=== PATIENT | male | born 1975 | race Caucasian/White ===

== ENCOUNTER 2024-07-28 15:06 | Inpatient (IN) | payer OTHER, SELFPAY ==
--- OUTSIDE RECORDS SUMMARY | 2024-07-28 15:10 | XMS REPORT | Continuity of Care Document ---
Author Name Unknown Address [address] [facility] [address] [place] [address] [facility] thconnect Address [address] [facility] [address] [place] [address] Care Team Providers Care Head Athletic Trainer Name Role Phone SISSON_C Attending Clinician Unavailable [facility]IS[facility]_C Admitting Clinician Unavailable Payers Payer Name Policy Type Policy Number Effective Date Expirati on Date Source Problems Condition Name Condition Details Condition Category Status Onset Date Resolution Date Last Treatment Date Treating Clinician Comments Source Essential hypertensi on Essential Hypertensi on Problem Active 09-16 00:00: 00 [facility] Abnormal blood pressure Abnormal Blood Pressure Problem Active 09-16 00:00: 00 [facility] Vitamin D deficiency Vitamin D Deficiency Problem Active 09-16 00:00: 00 [facility] Social History Smoking Status Start Date Stop Date Source Former Smoker [facility] Medications Ordered Medication Name Filled Medication Name Start Date Stop Date Current Medication? Ordering Clinician Indication Dosage Frequency Signature (SIG) Comments Components Source diclofenac 1 % topical gel APPLY 2 GRAMS TO THE AFFECTED AREA(S) BY TOPICAL ROUTE 4 TIMES PER DAY diclofenac 1 % topical gel APPLY 2 GRAMS TO THE AFFECTED AREA(S) BY TOPICAL ROUTE 4 TIMES PER DAY No diclofenac 1 % topical gel APPLY 2 GRAMS TO THE AFFECTED AREA(S) BY TOPICAL ROUTE 4 TIMES PER DAY [facility] diclofenac sodium 75 mg tablet,deni yed release TAKE 1 TABLET BY MOUTH TWICE DAILY NEEDED diclofenac sodium 75 mg tablet,deni yed release TAKE 1 TABLET BY MOUTH TWICE DAILY NEEDED No diclofenac sodium 75 mg tablet,del ayed release TAKE 1 TABLET BY MOUTH TWICE DAILY NEEDED [facility] losartan 100 mg-hydrochl orothiazide 25 mg tablet TAKE 1 TABLET BY MOUTH EVERY DAY losartan 100 mg-hydrochl orothiazide 25 mg tablet TAKE 1 TABLET BY MOUTH EVERY DAY No losartan 100 mg-hydroch lorothiazi de 25 mg tablet TAKE 1 TABLET BY MOUTH EVERY DAY [facility] meloxicam 15 mg tablet Take 1 tablet every day by oral route for 30 days. meloxicam 15 mg tablet Take 1 tablet every day by oral route for 30 days. No 1 Q1D meloxicam 15 mg tablet Take 1 tablet every day by oral route for 30 days. [facility] Norvasc 5 mg tablet Take 1 tablet every day by oral route at bedtime for 30 days. Norvasc 5 mg tablet Take 1 tablet every day by oral route at bedtime for 30 days. No 1 Q1D Norvasc 5 mg tablet Take 1 tablet every day by oral route at bedtime for 30 days. [facility] phentermine 37.5 mg tablet TAKE 1 TABLET BY MOUTH EVERY DAY phentermine 37.5 mg tablet TAKE 1 TABLET BY MOUTH EVERY DAY No phentermin e 37.5 mg tablet TAKE 1 TABLET BY MOUTH EVERY DAY [facility] prednisone 20 mg tablet Take 1 tablet twice a day by oral route for 5 days. prednisone 20 mg tablet Take 1 tablet twice a day by oral route for 5 days. No 1 BID prednisone 20 mg tablet Take 1 tablet twice a day by oral route for 5 days. [facility] trazodone 100 mg tablet TAKE 1 TABLET BY MOUTH ONCE DAILY trazodone 100 mg tablet TAKE 1 TABLET BY MOUTH ONCE DAILY No trazodone 100 mg tablet TAKE 1 TABLET BY MOUTH ONCE DAILY [facility] zolpidem 10 mg tablet TAKE 1 TABLET BY MOUTH DAILY AT BEDTIME zolpidem 10 mg tablet TAKE 1 TABLET BY MOUTH DAILY AT BEDTIME No zolpidem 10 mg tablet TAKE 1 TABLET BY MOUTH DAILY AT BEDTIME [facility] atenolol 25 mg tablet Take 1 tablet every day by oral route for 90 days. atenolol 25 mg tablet Take 1 tablet every day by oral route for 90 days. No 1 Q1D atenolol 25 mg tablet Take 1 tablet every day by oral route for 90 days. [facility] baclofen 10 mg tablet TAKE 1 TABLET BY MOUTH THREE TIMES DAILY NEEDED baclofen 10 mg tablet TAKE 1 TABLET BY MOUTH THREE TIMES DAILY NEEDED No baclofen 10 mg tablet TAKE 1 TABLET BY MOUTH THREE TIMES DAILY NEEDED [facility] cholecalcif sherry (vitamin D3) 1,250 mcg (50,000 unit) capsule Take 1 capsule every week by oral route as directed for 90 days. cholecalcif sherry (vitamin D3) 1,250 mcg (50,000 unit) capsule Take 1 capsule every week by oral route as directed for 90 days. No 1capsul e(s) Q1W cholecalci ferol (vitamin D3) 1,250 mcg (50,000 unit) capsule Take 1 capsule every week by oral route as directed for 90 days. [facility] diclofenac sodium 75 mg tablet,deni yed release TAKE 1 TABLET BY MOUTH TWICE DAILY NEEDED diclofenac sodium 75 mg tablet,deni yed release TAKE 1 TABLET BY MOUTH TWICE DAILY NEEDED No diclofenac sodium 75 mg tablet,del ayed release TAKE 1 TABLET BY MOUTH TWICE DAILY NEEDED [facility] losartan 100 mg-hydrochl orothiazide 25 mg tablet Take 1 tablet every day by oral route for 90 days. losartan 100 mg-hydrochl orothiazide 25 mg tablet Take 1 tablet every day by oral route for 90 days. No 1 Q1D losartan 100 mg-hydroch lorothiazi de 25 mg tablet Take 1 tablet every day by oral route for 90 days. [facility] Norvasc 5 mg tablet Take 1 tablet every day by oral route at bedtime for 30 days. Norvasc 5 mg tablet Take 1 tablet every day by oral route at bedtime for 30 days. No 1 Q1D Norvasc 5 mg tablet Take 1 tablet every day by oral route at bedtime for 30 days. [facility] trazodone 100 mg tablet TAKE 1 TABLET BY MOUTH ONCE DAILY trazodone 100 mg tablet TAKE 1 TABLET BY MOUTH ONCE DAILY No trazodone 100 mg tablet TAKE 1 TABLET BY MOUTH ONCE DAILY [facility] atenolol 25 mg tablet TAKE 1 TABLET BY MOUTH EVERY DAY atenolol 25 mg tablet TAKE 1 TABLET BY MOUTH EVERY DAY No atenolol 25 mg tablet TAKE 1 TABLET BY MOUTH EVERY DAY [facility] baclofen 10 mg tablet TAKE 1 TABLET BY MOUTH THREE TIMES DAILY NEEDED baclofen 10 mg tablet TAKE 1 TABLET BY MOUTH THREE TIMES DAILY NEEDED No baclofen 10 mg tablet TAKE 1 TABLET BY MOUTH THREE TIMES DAILY NEEDED [facility] cholecalcif sherry (vitamin D3) 1,250 mcg (50,000 unit) capsule Take 1 capsule every week by oral route as directed for 90 days. cholecalcif sherry (vitamin D3) 1,250 mcg (50,000 unit) capsule Take 1 capsule every week by oral route as directed for 90 days. No 1capsul e(s) Q1W cholecalci ferol (vitamin D3) 1,250 mcg (50,000 unit) capsule Take 1 capsule every week by oral route as directed for 90 days. [facility] diclofenac sodium 75 mg tablet,deni yed release TAKE 1 TABLET BY MOUTH TWICE DAILY NEEDED diclofenac sodium 75 mg tablet,deni yed release TAKE 1 TABLET BY MOUTH TWICE DAILY NEEDED No diclofenac sodium 75 mg tablet,del ayed release TAKE 1 TABLET BY MOUTH TWICE DAILY NEEDED [facility] losartan 100 mg-hydrochl orothiazide 25 mg tablet TAKE 1 TABLET BY MOUTH EVERY DAY losartan 100 mg-hydrochl orothiazide 25 mg tablet TAKE 1 TABLET BY MOUTH EVERY DAY No losartan 100 mg-hydroch lorothiazi de 25 mg tablet TAKE 1 TABLET BY MOUTH EVERY DAY [facility] Norvasc 5 mg tablet Take 1 tablet every day by oral route at bedtime for 30 days. Norvasc 5 mg tablet Take 1 tablet every day by oral route at bedtime for 30 days. No 1 Q1D Norvasc 5 mg tablet Take 1 tablet every day by oral route at bedtime for 30 days. [facility] phentermine 37.5 mg tablet Take 1 tablet every day by oral route for 30 days. phentermine 37.5 mg tablet Take 1 tablet every day by oral route for 30 days. No 1 Q1D phentermin e 37.5 mg tablet Take 1 tablet every day by oral route for 30 days. [facility] trazodone 100 mg tablet TAKE 1 TABLET BY MOUTH ONCE DAILY trazodone 100 mg tablet TAKE 1 TABLET BY MOUTH ONCE DAILY No trazodone 100 mg tablet TAKE 1 TABLET BY MOUTH ONCE DAILY [facility] alprazolam 1 mg tablet alprazolam 1 mg tablet No alprazolam 1 mg tablet [facility] atenolol 25 mg tablet TAKE 1 TABLET BY MOUTH EVERY DAY atenolol 25 mg tablet TAKE 1 TABLET BY MOUTH EVERY DAY No atenolol 25 mg tablet TAKE 1 TABLET BY MOUTH EVERY DAY [facility] baclofen 10 mg tablet TAKE 1 TABLET BY MOUTH THREE TIMES DAILY NEEDED baclofen 10 mg tablet TAKE 1 TABLET BY MOUTH THREE TIMES DAILY NEEDED No baclofen 10 mg tablet TAKE 1 TABLET BY MOUTH THREE TIMES DAILY NEEDED [facility] cholecalcif sherry (vitamin D3) 1,250 mcg (50,000 unit) capsule Take 1 capsule every week by oral route as directed for 90 days. cholecalcif sherry (vitamin D3) 1,250 mcg (50,000 unit) capsule Take 1 capsule every week by oral route as directed for 90 days. No 1capsul e(s) Q1W cholecalci ferol (vitamin D3) 1,250 mcg (50,000 unit) capsule Take 1 capsule every week by oral route as directed for 90 days. [facility] diclofenac sodium 75 mg tablet,deni yed release TAKE 1 TABLET BY MOUTH TWICE DAILY NEEDED diclofenac sodium 75 mg tablet,deni yed release TAKE 1 TABLET BY MOUTH TWICE DAILY NEEDED No diclofenac sodium 75 mg tablet,del ayed release TAKE 1 TABLET BY MOUTH TWICE DAILY NEEDED [facility] losartan 100 mg-hydrochl orothiazide 25 mg tablet TAKE 1 TABLET BY MOUTH EVERY DAY losartan 100 mg-hydrochl orothiazide 25 mg tablet TAKE 1 TABLET BY MOUTH EVERY DAY No losartan 100 mg-hydroch lorothiazi de 25 mg tablet TAKE 1 TABLET BY MOUTH EVERY DAY [facility] Norvasc 5 mg tablet Take 1 tablet every day by oral route at bedtime for 30 days. Norvasc 5 mg tablet Take 1 tablet every day by oral route at bedtime for 30 days. No 1 Q1D Norvasc 5 mg tablet Take 1 tablet every day by oral route at bedtime for 30 days. [facility] phentermine 37.5 mg tablet Take 1 tablet every day by oral route for 30 days. phentermine 37.5 mg tablet Take 1 tablet every day by oral route for 30 days. No 1 Q1D phentermin e 37.5 mg tablet Take 1 tablet every day by oral route for 30 days. [facility] trazodone 100 mg tablet TAKE 1 TABLET BY MOUTH ONCE DAILY trazodone 100 mg tablet TAKE 1 TABLET BY MOUTH ONCE DAILY No trazodone 100 mg tablet TAKE 1 TABLET BY MOUTH ONCE DAILY [facility] zolpidem 10 mg tablet TAKE 1 TABLET BY MOUTH DAILY AT BEDTIME zolpidem 10 mg tablet TAKE 1 TABLET BY MOUTH DAILY AT BEDTIME No zolpidem 10 mg tablet TAKE 1 TABLET BY MOUTH DAILY AT BEDTIME [facility] alprazolam 1 mg tablet alprazolam 1 mg tablet No alprazolam 1 mg tablet [facility] atenolol 25 mg tablet TAKE 1 TABLET BY MOUTH EVERY DAY atenolol 25 mg tablet TAKE 1 TABLET BY MOUTH EVERY DAY No atenolol 25 mg tablet TAKE 1 TABLET BY MOUTH EVERY DAY [facility] baclofen 10 mg tablet TAKE 1 TABLET BY MOUTH THREE TIMES DAILY NEEDED baclofen 10 mg tablet TAKE 1 TABLET BY MOUTH THREE TIMES DAILY NEEDED No baclofen 10 mg tablet TAKE 1 TABLET BY MOUTH THREE TIMES DAILY NEEDED [facility] bupropion HCl XL 150 mg 24 hr tablet, extended release bupropion HCl XL 150 mg 24 hr tablet, extended release No bupropion HCl XL 150 mg 24 hr tablet, extended release [facility] cholecalcif sherry (vitamin D3) 1,250 mcg (50,000 unit) capsule Take 1 capsule every week by oral route as directed for 90 days. cholecalcif sherry (vitamin D3) 1,250 mcg (50,000 unit) capsule Take 1 capsule every week by oral route as directed for 90 days. No 1capsul e(s) Q1W cholecalci ferol (vitamin D3) 1,250 mcg (50,000 unit) capsule Take 1 capsule every week by oral route as directed for 90 days. [facility] Vital Signs Vital Name Observation Time Observation Value Comments S ource BP Diastolic 2022-12-06 00:00:00 107 mm[Hg] [facility] Height 2022-12-06 00:00:00 70 [in_i] [facility] BMI (Body Mass Index) 2022-12-06 00:00:00 32.4 kg/m2 [facility] BP Systolic 2022-12-06 00:00:00 146 mm[Hg] [facility] Body Weight 2022-12-06 00:00:00 3608 [oz_av] [facility] BP Diastolic 2022-11-06 00:00:00 89 mm[Hg] [facility] Height 2022-11-06 00:00:00 70 [in_i] [facility] BMI (Body Mass Index) 2022-11-06 00:00:00 32.1 kg/m2 [facility] BP Systolic 2022-11-06 00:00:00 131 mm[Hg] [facility] Body Weight 2022-11-06 00:00:00 3584 [oz_av] [facility] BP Diastolic 2022-08-15 00:00:00 87 mm[Hg] [facility] Height 2022-08-15 00:00:00 70 [in_i] [facility] BP Systolic 2022-08-15 00:00:00 130 mm[Hg] [facility] BP Diastolic 2022-08-07 00:00:00 136 mm[Hg] [facility] Height 2022-08-07 00:00:00 70 [in_i] [facility] BMI (Body Mass Index) 2022-08-07 00:00:00 30.8 kg/m2 [facility] BP Systolic 2022-08-07 00:00:00 187 mm[Hg] [facility] Body Weight 2022-08-07 00:00:00 3440 [oz_av] [facility] Plan of Care Planned Activity Planned Date Details Comments Source Diagnostic Test Pending 2022-08-15 00:00:00 venipuncture [code = venipuncture] [facility] Encounters Start Date/Time End Date/Time Encounter Type Admission Type Attending Clinicians Care Facility Care Department Encounter ID Source 2023-02-21 00:00:00 2023-02-21 00:00:00 Outpatient [facility] [id number] [place] [facility] 2023-01-17 00:00:00 2023-01-17 00:00:00 Outpatient [id number] 2022-12-13 00:00:00 2022-12-13 00:00:00 Outpatient [facility] [id number] [facility] 2022-12-06 00:00:00 2022-12-06 00:00:00 Jeff Samano MSN, COMPLEX CASE MANAGER, PILLOWCASE TURNER-C: [address], [place] [address] , Ph. [facility], Jeff Samano, MSN, PILLOWCASE TURNER-C [id number] [facility] 2022-11-06 00:00:00 2022-11-06 00:00:00 Outpatient [facility] [id number] [facility] 2022-11-06 00:00:00 2022-11-06 00:00:00 Jeff Samano MSN, COMPLEX CASE MANAGER, PILLOWCASE TURNER-C: [address], [place] [address] , Ph. [facility], Jeff Samano, MSN, PILLOWCASE TURNER-C [id number] [facility] 2022-08-15 00:00:00 2022-08-15 00:00:00 Outpatient [facility] [id number] [place] [facility] 2022-08-15 00:00:00 2022-08-15 00:00:00 Jeff Samano, MSN, COMPLEX CASE MANAGER, PILLOWCASE TURNER-C: [address]la [address], [address] [place] [address] , Ph. [facility], Jeff Samano, MSN, PILLOWCASE TURNER-C [id number] [place] [facility] 2022-08-14 00:00:00 2022-08-14 00:00:00 Outpatient [facility] [id number] [place] [facility] 2022-08-14 00:00:00 2022-08-14 00:00:00 Outpatient [facility] [id number] [place] [facility] 2022-08-07 00:00:00 2022-08-07 00:00:00 Outpatient [facility] [id number] [place] [facility] 2022-08-07 00:00:00 2022-08-07 00:00:00 Jeff Samano, MSN, COMPLEX CASE MANAGER, PILLOWCASE TURNER-C: Karla Lopez, [address], [place] [address] , Ph. [facility], Jeff Samano, MSN, PILLOWCASE TURNER-C [id number] [place] [facility] 2022-07-30 00:00:00 2022-07-30 00:00:00 Outpatient [facility] [id number] [place] [facility]
[2024-07-28] MEDS ORDERED: AMLODIPINE 10 MG TAB ONE (15:40)
[2024-07-28] MEDS ORDERED: cloNIDine HCL 0.1 MG TAB ONE (15:40)
[2024-07-28 15:58] LABS: Absolute Eosinophils 0.1 K/uL (0-0.5); Absolute Lymphocytes (CBC) 1.9 K/uL (0.7-4.9); Absolute Monocytes 0.5 K/uL (0.1-1.3); Absolute Neutrophil 5.2 K/uL (1.8-8.0); Basophils % 0.3 % (0-1.3); Eosinophils % 1.2 % (0-4.4); Hematocrit 47.6 % (39.6-49.0); Hemoglobin 16.8 g/dL (13.6-17.9); Lymphocytes % 24.6 % (15.3-44.8); MCH 28.7 pg (27.0-35.0); MCHC 35.3 g/dL (32.0-36.0); MCV 81.3 fL (80-100); MPV 9.9 fL (7.6-11.3); Monocytes % 6.9 % (3.3-12.3); Nucleated Red Blood Cells % 0.3 % (0-0); Platelets 261 thou/uL (152-406); RBC Red Blood Cell Count 5.85 M/uL (4.33-5.43); Red Cell Distribution Width 13.5 % (12.1-15.2)
[2024-07-28 16:03] LABS: Albumin 3.8 g/dL (3.4-5.0); Albumin/Globulin Ratio 0.9 (1.1-1.8); Anion Gap 8.8 mEq/L (5.0-15.0); Bilirubin Direct 0.3 mg/dL (0-0.2); Bilirubin Indirect, Calculated 0.9 mg/dL (0.2-0.8); Bilirubin Total 1.2 mg/dL (0.2-1.0); Globulin 4.1 g/dL (2.3-3.5); Magnesium 2.2 mg/dL (1.6-2.4); Potassium 3.8 mEq/L (3.5-5.1); Protein, Total 7.9 g/dL (6.4-8.2)
[2024-07-28 16:09] LABS: Troponin High Sensitivity 277.6 pg/mL (<58.9)
[2024-07-28 16:22] LABS: PT Prothrombin Time 12.2 SECONDS (9.4-12.5); Protime INR 1.16
[2024-07-28] MEDS ORDERED: HYDRALAZINE HCL 20 MG/ML VIAL ONE (16:35)
--- NOTE | 2024-07-28 17:08 | RAD REPORT ---
EXAM: Chest Single View HISTORY: hypertension COMPARISON: None. FINDINGS: LUNGS/PLEURA: The lungs are clear. No pleural effusions or pneumothorax. No pulmonary edema. MEDIASTINUM: The mediastinal silhouette is within normal limits. CARDIAC: The cardiac silhouette is within normal limits. UPPER ABDOMEN: No significant abnormality. BONES: No acute abnormality. LINES/TUBES/OTHER: N/A IMPRESSION: No evidence of acute cardiopulmonary disease.
--- NOTE | 2024-07-28 17:08 | RAD REPORT ---
EXAMINATION: CT HEAD WITHOUT CONTRAST CLINICAL INDICATION: Male, 49 years old.hypertension;Headache TECHNIQUE: Axial CT images from the skull base to the vertex without intravenous contrast. Coronal an d sagittal reformatted images were created from the data set. One or more of the following dose reduction techniques were used: Automated exposure control, adjustment of the mA and/or kV according to patient size, and/or iterative reconstruction. Unless otherwise specified, incidental findings do not require dedicated imaging follow-up. [id number]. COMPARISON: No prior exam. FINDINGS: INTRACRANIAL: No acute intracranial hemorrhage. No hydrocephalus. No mass effect or midline shift. Mi ld chronic small vessel ischemic changes. VASCULATURE: No visualized abnormalities in the arteries or dural venous sinuses. SCALP/SKULL: No significant soft tissue or osseous abnormalities. SINUSES: The visualized paranasal sinuses and mastoid air cells are predominantly clear. IMPRESSION: No acute intracranial abnormality.
[2024-07-28] MEDS ORDERED: HEPARIN 5000 UNIT/ML 1 ML VIAL ONE (17:11)
[2024-07-28] MEDS ORDERED: HEPARIN/D5W 25,000 UNIT/500 ML BAG IV ONE (17:11)
[2024-07-28] MEDS ORDERED: NA CHLORIDE 0.9% 1,000 ML ONE (17:15)
--- NOTE | 2024-07-28 17:49 | ER ---
Nurse's Notes [facility] Name: Liborio Reese Age: 49 yrs Sex: Male : 1975 Arrival Date: 07/28/2024 Time: 15:06 Bed 20 Private MD: Diagnosis: Subsequent non-ST elevation (NSTEMI) myocardial infarction;Hypertensive emergency Presentation: 07/28 15:12 Acuity: MARQUIS 2 aa5 15:12 Onset of symptoms was July 28, 2024. aa5 15:12 Coronavirus screen: At this time, the client does not indicate any symptoms associated aa5 with coronavirus-19. Ebola Screen: Patient denies travel to an Ebola-affected area in the 21 days before illness onset. Initial Sepsis Screen: Does the patient meet any 2 criteria? No. Patient's initial sepsis screen is negative. Does the patient have a suspected source of infection? No. Patient's initial sepsis screen is negative. Risk Assessment: Do you want to hurt yourself or someone else? Patient reports no desire to harm self or others. 15:12 Method Of Arrival: Ambulatory aa5 15:12 Chief complaint: Patient states: "I was at my psychiatrist office and he said my blood aa5 pressure was too high, about 215 (systolic)". Pt states "I just feel very anxious and I've been having financial stress and fights with the ". Pt reports he used to take antihypertensive home medication but hasn't taken it in approximately 1 year. Historical: - Allergies: 15:22 No Known Allergies; aa5 - PMHx: 15:22 Hypertensive disorder; ADD; aa5 - PSHx: 15:22 None; aa5 - Immunization history:: Adult Immunizations unknown. - Infectious Disease History:: Denies. - Social history:: Smoking status: Patient reports the use of cigarette tobacco products, cigars. Screenin:15 [facility] ED Fall Risk Assessment (Adult) History of falling in the last 3 months, rs5 including since admission No falls in past 3 months (0 pts) Confusion or Disorientation No (0 pts) Intoxicated or Sedated No (0 pts) Impaired Gait No (0 pts) Mobility Assist Device Used No (0 pt) Altered Elimination No (0 pt) Score/Fall Risk Level 0 - 2 = Low Risk Oriented to surroundings, Maintained a safe environment. 15:15 Abuse screen: Denies threats or abuse. Nutritional screening: No deficits noted. rs5 Tuberculosis screening: No symptoms or risk factors identified. Assessment: 15:15 General: Appears in no apparent distress. comfortable, Behavior is calm, cooperative. rs5 Pain: Denies pain. Neuro: Level of Consciousness is awake, alert, obeys commands, Oriented to person, place, time, situation. Cardiovascular: Patient's skin is warm and dry. Respiratory: Airway is patent Respiratory effort is even, unlabored, Respiratory pattern is regular, symmetrical. GI: Abdomen is round non-distended, Abd is soft and non tender X 4 quads. : No signs and/or symptoms were reported regarding the genitourinary system. EENT: No signs and/or symptoms were reported regarding the EENT system. Derm: Skin is intact, Skin is pink, warm \\T\\ dry. Musculoskeletal: Range of motion: intact in all extremities. 16:22 Reassessment: Patient and/or family updated on plan of care and expected duration. Pain rs5 level reassessed. Patient is alert, oriented x 3, equal unlabored respirations, skin warm/dry/pink. 16:50 Reassessment: to bedside, provider notified of latest BP. rs5 17:00 Reassessment: provider notified of latest bp. Pt not oriented to time or place, rs5 provider notified. 17:00 Neuro: Level of Consciousness is awake, alert, obeys commands, Oriented to person, rs5 situation. 17:01 Reassessment: provider at bedside . rs5 17:14 Neuro: Level of Consciousness is awake, alert, obeys commands, Oriented to person, rs5 place, time. 17:14 Neuro: Assessment Analyst are equal bilaterally Moves all extremities. Speech is normal, Facial rs5 symmetry appears normal, Pupils are PERRLA, Intact. 17:15 Reassessment: pt currently not oriented to situation. provider notified . rs5 17:22 Reassessment: Patient and/or family updated on plan of care and expected duration. Pain rs5 level reassessed. Patient is alert, oriented x 3, equal unlabored respirations, skin warm/dry/pink. 18:32 Reassessment: Patient and/or family updated on plan of care and expected duration. Pain rs5 level reassessed. Patient is alert, oriented x 3, equal unlabored respirations, skin warm/dry/pink. failed attempt to call report x2, asked to call back at a later time. 18:40 Reassessment: failed attempt to call report, no answer. rs5 19:00 Reassessment: report given to nightshift nurse. rs5 Vital Signs: 15:12 BP 226 / 139; Pulse 71; Resp 20 S; Temp 97.5(TE); Pulse Ox 98% on R/A; Weight 97.98 kg aa5 (R); Height 5 ft. 10 in. (R); 16:09 BP 211 / 139; rs5 16:52 BP 156 / 100; Pulse 74; Resp 17; Pulse Ox 99% ; rs5 17:01 BP 110 / 78; Pulse 70; Resp 17; Pulse Ox 99% ; rs5 17:51 BP 144 / 89; Pulse 71; Resp 17; Pulse Ox 99% ; rs5 18:30 BP 150 / 87; Pulse 68; Resp 17; Pulse Ox 99% ; rs5 15:12 Body Mass Index 30.99 (97.98 kg, 177.8 cm) aa5 ED Course: 15:10 Patient arrived in ED. im 15:12 David Klein, RN is Primary Nurse. rs5 15:12 Zaki Shipley PA is PHCP. cp 15:12 Arm band placed on Patient placed in an exam room, on a stretcher. aa5 15:13 Zaki Freitas MD is Attending Physician. cp 15:20 Triage completed. aa5 15:48 CT Head Brain wo Cont In Process Unspecified. EDMS 16:06 XRAY Chest (1 view) In Process Unspecified. EDMS 17:48 Torito Lopes is Hospitalizing Provider. cp 21:55 Troponin High Sensitivity Sent. ay 21:56 Ptt, Activated Sent. ay Administered Medications: 15:40 Drug: cloNIDine PO 0.2 mg PO once Route: PO; rs5 15:40 Drug: amLODIPine PO 10 mg PO once Route: PO; rs5 16:30 Drug: hydrALAZINE IVP 20 mg IVP once; For SBP > 200 mmHg. Hold if less than 160 mmHg. rs5 Route: IVP; Site: right antecubital; 17:10 Drug: Heparin ([place] Drip) 12 units/kg/[place] - ([place] [address] units, D5W IV 500 ml) IV at rs5 calculated rate Per protocol; Max initial rate 1000 units/hr {Co-Signature: bp (Jonathan Mo RN).} Route: IV; Rate: calculated rate; Site: right antecubital; 17:10 Drug: Heparin ([place]-Bolus No thrombolytic) - HEParin IVP 60 units/kg IVP once; Max 4000 rs5 units {Co-Signature: bp (Jonathan Mo RN).} Route: IVP; Site: right antecubital; 17:41 Drug: NS 0.9% IV 1000 ml IV at 1000 ml once; to be given as a bolus over 60 minutes rs5 Route: IV; Rate: 1000 ml; Site: right antecubital; 21:28 Drug: Ativan IVP 1 mg IVP once Route: IVP; Site: right hand; ay Outcome: 17:49 Decision to Hospitalize by Provider. cp 22:29 Patient left the ED. vc1 Signatures: Dispatcher [employer] EDMS Lucía Ordoñez RN RN aa5 Zaki Shipley PA PA cp Hodan Vann RN RN vc1 David Klein RN RN rs5 Carol Jackson Awudu, RN RN ay Jonathan Mo RN bp Corrections: (The following items were deleted from the chart) 15:23 15:12 Chief complaint: Patient states: "I was at my psychiatrist office and he said my aa5 blood pressure was too high, about 215 (systolic)". Pt states "I just feel very anxious and I've been having financial stress and fights with the ". aa5 15:31 15:30 To radiology for Head Brain Wo Cont+CT.RAD.BRZ. rs5 EDMS
--- NOTE | 2024-07-28 17:49 | EDPHYS ---
Physician Documentation [facility] Name: Liborio Reese Age: 49 yrs Sex: Male : 1975 Arrival Date: 07/28/2024 Time: 15:06 Bed 20 Private MD: ED Physician Zaki Freitas HPI: 07/28 15:28 This 49 yrs old Male presents to ER via Ambulatory with complaints of High Blood cp Pressure. 15:28 The patient has elevated blood pressure and discovered this at a physician's office, cp and sent to the emergency department for evaluation. Onset: The symptoms/episode began/occurred at an unknown time. reports PMHX of hypertension and stopped taking prescribed blood pressure medications over a year ago. Associated signs and symptoms: Pertinent positives: headache, Pertinent negatives: chest pain, dizziness, vomiting, weakness. Severity of symptoms: in the emergency department the blood pressure is systolic pressure 226. Historical: - Allergies: 15:22 No Known Allergies; aa5 - PMHx: 15:22 Hypertensive disorder; ADD; aa5 - PSHx: 15:22 None; aa5 - Immunization history:: Adult Immunizations unknown. - Infectious Disease History:: Denies. - Social history:: Smoking status: Patient reports the use of cigarette tobacco products, cigars. ROS: 15:30 Constitutional: Negative for body aches, chills, fever, poor PO intake, cp 15:30 Cardiovascular: Negative for chest pain, edema, palpitations, cp 15:30 Respiratory: Negative for cough, shortness of breath, wheezing, 15:30 Abdomen/GI: Negative for abdominal pain, vomiting, diarrhea, constipation, 15:30 Neuro: Positive for headache, Negative for altered mental status, numbness, speech changes, syncope, weakness, 15:30 Eyes: Negative for injury, pain, redness, and discharge, cp 15:30 ENT: Negative for drainage from ear(s), ear pain, sore throat, difficulty swallowing, cp difficulty handling secretions, 15:30 All other systems are negative, Exam: 15:35 Constitutional: The patient appears in no acute distress, alert, awake, cp non-diaphoretic, non-toxic, well developed, well nourished, anxious, 15:35 Head/Face: Normocephalic, atraumatic. cp 15:35 Eyes: Periorbital structures: appear normal, Pupils: equal, round, and reactive to light and accomodation, Extraocular movements: intact throughout, Conjunctiva: normal, no exudate, no injection, Sclera: no appreciated abnormality, Lids and lashes: appear normal, bilaterally, 15:35 ENT: External ear(s): are unremarkable, Nose: is normal, Mouth: Lips: moist, Oral mucosa: pink and intact, moist, Posterior pharynx: Airway: no evidence of obstruction, patent, 15:35 Neck: ROM/movement: limited range of motion, is not appreciated, nuchal rigidity, is not appreciated, 15:35 Chest/axilla: Inspection: normal, 15:35 Cardiovascular: Rate: normal, Rhythm: regular, Edema: is not appreciated, JVD: is not appreciated, 15:35 Respiratory: the patient does not display signs of respiratory distress, Respirations: normal, no use of accessory muscles, no retractions, labored breathing, is not present, Breath sounds: are clear throughout, no decreased breath sounds, no stridor, no wheezing, 15:35 Abdomen/GI: Inspection: abdomen appears normal, Palpation: abdomen is soft and non-tender, in all quadrants, 15:35 Back: pain, is absent, ROM is normal, 15:35 Neuro: Orientation: to person, place, situation, Mentation: able to follow commands, Cerebellar function: is grossly normal, Motor: moves all fours, no focal deficits, Sensation: is normal, 16:00 ECG was reviewed by the Attending Physician. cp Vital Signs: 15:12 BP 226 / 139; Pulse 71; Resp 20 S; Temp 97.5(TE); Pulse Ox 98% on R/A; Weight 97.98 kg aa5 (R); Height 5 ft. 10 in. (R); 16:09 BP 211 / 139; rs5 16:52 BP 156 / 100; Pulse 74; Resp 17; Pulse Ox 99% ; rs5 17:01 BP 110 / 78; Pulse 70; Resp 17; Pulse Ox 99% ; rs5 17:51 BP 144 / 89; Pulse 71; Resp 17; Pulse Ox 99% ; rs5 18:30 BP 150 / 87; Pulse 68; Resp 17; Pulse Ox 99% ; rs5 15:12 Body Mass Index 30.99 (97.98 kg, 177.8 cm) aa5 MDM: 15:13 Medical Screening Exam initiated cp 16:00 Differential diagnosis: hypertensive crisis, Malignant HTN, CVA, intracerebral cp hemorrhage. 17:45 Data reviewed: vital signs, nurses notes, lab test result(s), EKG, radiologic studies, cp CT scan, I have discussed the patient's presentation/case with the attending Emergency Department Physician; and as a result, I will admit patient. Management of patient was discussed with the following: Police Captain: DR Cordoba, public relations associate, will consult and patient to be admitted to services of hospitalist, DR Lopes. I considered the following discharge prescriptions or medication management in the emergency department Medications were administered in the Emergency Department. See MAR. Independent interpretation of the following test(s) in the Emergency Department EKG: See my EKG interpretation above. Care significantly affected by the following chronic conditions: Hypertension. Counseling: I had a detailed discussion with the patient and/or guardian regarding the historical points, exam findings, and any diagnostic results supporting the discharge/admit diagnosis, the presence of at least one elevated blood pressure reading (>120/80) during this emergency department visit, lab results, radiology results, the need for further work-up and treatment in the hospital. Response to treatment: the patient's symptoms have markedly improved after treatment. 07/28 15:25 Order name: Basic Metabolic Panel; Complete Time: 16:09 07/28 16:09 Interpretation: Normal except: NA 134; GFR 89. cp 07/28 15:25 Order name: CBC with Diff; Complete Time: 16:09 07/28 16:55 Interpretation: Normal except: RBC 5.85. 07/28 15:25 Order name: LFT's; Complete Time: 16:14 cp 07/28 16:14 Interpretation: Normal except: BILIT 1.2; BILID 0.3; IBILI, CALC 0.9; GLOB 4.1; A/G 0.9.cp 07/28 15:25 Order name: Magnesium; Complete Time: 16:14 cp 07/28 15:25 Order name: NT PRO-BNP; Complete Time: 16:09 cp 07/28 16:09 Interpretation: Abnormal: NT PRO-BNP 1096. 07/28 15:25 Order name: PT-INR; Complete Time: 16:54 cp 07/28 16:54 Interpretation: Reviewed. 07/28 15:25 Order name: Troponin HS; Complete Time: 16:14 07/28 16:14 Interpretation: Abnormal: Troponin HS 277.6. 07/28 16:28 Order name: Urinalysis W/Microscopic 07/28 16:28 Order name: UDS 07/28 20:52 Order name: Troponin High Sensitivity 07/28 21:40 Order name: Ptt, Activated ay 07/28 22:19 Order name: Troponin High Sensitivity [facility] 07/28 22:22 Order name: PTT, Activated Partial Thromb EDUT 07/28 15:25 Order name: XRAY Chest (1 view); Complete Time: 17:36 07/28 15:25 Order name: CT Head Brain wo Cont; Complete Time: 17:36 07/28 15:25 Order name: EKG; Complete Time: 15:26 07/28 18:14 Order name: CONS Physician Consult [facility] 07/28 15:25 Order name: Cardiac monitoring; Complete Time: 15:56 07/28 15:25 Order name: EKG - Nurse/Tech; Complete Time: 15:56 07/28 15:25 Order name: IV Saline Lock; Complete Time: 15:56 07/28 15:25 Order name: Labs collected and sent; Complete Time: 15:56 07/28 15:25 Order name: O2 Per Protocol; Complete Time: 15:56 07/28 15:25 Order name: O2 Sat Monitoring; Complete Time: 15:56 07/28 19:15 Order name: Accucheck Blood Glucose cp EC:00 Rate is 66 beats/min. Rhythm is regular. WA interval is normal. QRS interval is normal. cp QT interval is normal. T waves are Inverted in leads I, II, aVF, V2, V3, V4, V5, V6. ST Segment is depressed in leads I, II, V3, V4, V5, V6. Administered Medications: 15:40 Drug: cloNIDine PO 0.2 mg PO once Route: PO; rs5 15:40 Drug: amLODIPine PO 10 mg PO once Route: PO; rs5 16:30 Drug: hydrALAZINE IVP 20 mg IVP once; For SBP > 200 mmHg. Hold if less than 160 mmHg. rs5 Route: IVP; Site: right antecubital; 17:10 Drug: Heparin (HERNANDEZ Mendozaip) 12 units/kg/[place] - ([place] [address] units, D5W IV 500 ml) IV at rs5 calculated rate Per protocol; Max initial rate 1000 units/hr {Co-Signature: bp (Jonathan Mo RN).} Route: IV; Rate: calculated rate; Site: right antecubital; 17:10 Drug: Heparin ([place]-Bolus No thrombolytic) - HEParin IVP 60 units/kg IVP once; Max 4000 rs5 units {Co-Signature: bp (Jonathan Mo RN).} Route: IVP; Site: right antecubital; 17:41 Drug: NS 0.9% IV 1000 ml IV at 1000 ml once; to be given as a bolus over 60 minutes rs5 Route: IV; Rate: 1000 ml; Site: right antecubital; 21:28 Drug: Ativan IVP 1 mg IVP once Route: IVP; Site: right hand; ay Disposition: 07/29 09:33 Co-signature as Attending Physician, Zaki Freitas MD I agree with the assessment and vicky plan of care. Disposition Summary: 07/28/24 17:49 Hospitalization Ordered Notes: Hospitalization Status: Inpatient Admission cp Provider: Torito Lopes cp Location: Intensive Care Unit cp Condition: Stable cp Problem: new cp Symptoms: have improved cp Bed/Room Type: Standard Room Assignment: 7-(07/28/24 18:17) eb Diagnosis - Subsequent non-ST elevation (NSTEMI) myocardial infarction cp - Hypertensive emergency cp Forms: - Medication Reconciliation Form cp - SBAR form cp - Leadership Thank You Letter cp Critical care time excluding procedures: 21:05 Critical care time: Bedside Care: 10 minutes, Consultation: 25 minutes, Family cp Intervention: 5 minutes. Total time: 40 minutes Signatures: Dispatcher [employer] Zaki Booth MD MD cha Calderon, Audri, RN RN aa5 Zaki Shipley PA PA cp Zahra Longoria Ricky, RN RN rs5 Maddison Zazueta RN RN ay Jonathan Mo RN bp Corrections: (The following items were deleted from the chart) 07/28 15:31 15:26 Head Brain Wo Cont+CT.RAD.BRZ ordered. EDMS EDMS 16:28 16:28 Urinalysis W/Microscopic+U.LAB.BRZ ordered. EDUT EDMS 16:28 16:28 URINE DRUG SCREEN+UC.LAB.BRZ ordered. [facility] EDMS 18:17 17:49 cp eb 07/29 20:04 07/28 17:00 Data reviewed: vital signs, nurses notes, lab test result(s), EKG, cp radiologic studies, CT scan, I have discussed the patient's presentation/case with the attending Emergency Department Physician; and as a result, I will admit patient, 07/29 20:07/28 17:00 Management of patient was discussed with the following: Police Captain: DR william Cordoba, public relations associate, will consult and patient to be admitted to services of hospitalist, DR Lopes. 07/29 20:07/28 17:00 I considered the following discharge prescriptions or medication management cp in the emergency department Medications were administered in the Emergency Department. See [facility] 07/29 20:07/28 17:00 Independent interpretation of the following test(s) in the Emergency cp Department EKG: See my EKG interpretation above 07/29 20:07/28 17:00 Care significantly affected by the following chronic conditions: cp Hypertension, 07/29 20:07/28 17:00 Counseling: I had a detailed discussion with the patient and/or guardian cp regarding the historical points, exam findings, and any diagnostic results supporting the discharge/admit diagnosis, the presence of at least one elevated blood pressure reading (>120/80) during this emergency department visit, lab results, radiology results, the need for further work-up and treatment in the hospital, 07/29 17:00 Response to treatment: the patient's symptoms have markedly improved after cp treatment, cp
[2024-07-28] MEDS ORDERED: HEPARIN/D5W 25,000 UNIT/500 ML BAG IV PRN (18:12)
[2024-07-28] MEDS ORDERED: ACETAMINOPHEN 500 MG TAB PO PRN (18:12)
[2024-07-28] MEDS ORDERED: ONDANSETRON 4 MG/2 ML VIAL IV PRN (18:12)
--- NOTE | 2024-07-28 18:38 | P.HP ---
Certification for Inpatient Patient admitted to: Inpatient With expected LOS: >2 Midnights Practitioner: I am a practitioner with admitting privileges, knowledge of patient current condition, hospital course, and medical plan of care. Services: Services provided to patient in accordance with Admission requirements found in Title 42 Section 412.3 of the Code of Federal Regulations Patient History Date of Service: 07/28/24 Reason for admission: Elevated blood pressure History of Present Illness: 49-year-old gentleman with a history of hypertension, anxiety and depression, ADHD, was referred to the emergency department by his psychiatrist due to's severely elevated blood pressure measured in his psychiatrist office. According to report patient stated he has not taking any antihypertensive medication for several years. He went to his psychiatrist office to get refill for his ADHD medication and was noted to have severely elevated blood pressure with systolic in the 200s. Patient was therefore referred to the emergency department. According to the ED provider patient reported he used to abuse cocaine. He was evaluated in the emergency department and EKG showed diffuse T wave inversions, initial troponin negative. Head CT was done which did not show any acute intracranial abnormality, chest x-ray showed no acute disease. Patient was given a dose of hydralazine 20 mg IV which dropped his systolic blood pressure from the 200s initially to the 80s. Systolic blood pressure improved to 130s without any intervention. Patient was complaining of short- term memory loss and states that he does not remember how he got to the ER. He could not provide any history. He was complaining of tingling sensation all over. Patient is admitted to the ICU for further management. - Past Medical/Surgical History -: Hypertension -: Anxiety and depression -: ADH -: Unknown - Social History Alcohol use: No Place of Residence: Home Review of Systems Other: Patient denied any headache, denies any nausea or vomiting or abdominal pain. He denies any chest pain or shortness of breath. Except as documented, other systems reviewed and negative. Physical Examination - Physical Exam General: In no apparent distress, Confused, Other HEENT: Atraumatic, Normocephalic, PERRLA, Mucous membr. moist/pink, EOMI, Sclerae nonicteric Neck: Supple, 2+ carotid pulse no bruit, JVD not distended, No Thyromegaly Respiratory: Clear to auscultation bilaterally, Normal air movement Cardiovascular: No edema, Normal pulses, Regular rate/rhythm, Normal S1 S2, No murmurs Capillary refill: <2 Seconds Gastrointestinal: Normal bowel sounds, Soft and benign, Non-distended, No tenderness Musculoskeletal: No swelling, No tenderness Integumentary: No rashes, No cyanosis Neurological: Normal speech, Normal strength at 5/5 x4 extr, Cranial nerves 3-12 intact Lymphatics: No axilla or inguinal lymphadenopathy - Studies Laboratory Data (last 24 hrs) 07/28/24 07/28/24 07/28/24 15:37 15:37 15:37 WBC 7.80 Hgb 16.8 Hct 47.6 Plt Count 261 PT 12.2 INR 1.16 Sodium 134 L Potassium 3.8 BUN 14 Creatinine 1.03 Glucose 91 Magnesium 2.2 Total Bilirubin 1.2 H AST 33 ALT 41 Alkaline Phosphatase 85 Assessment and Plan - Plan Diagnosis Malignant hypertension Transient amnesia NSTEMI Abnormal EKG. Anxiety and depression Plan: Malignant hypertension Admit patient to the ICU Patient is currently normotensive after dose of IV hydralazine. Monitor BP closely And start nitroglycerin drip as needed for SBP greater than 160. Beta-carlo as his blood pressure will tolerate. Obtain echocardiogram. Screen for pheochromocytoma given anxiety, and reported psychosis. NSTEMI Abnormal EKG Troponin mildly elevated Cardiology Dr. Hines was informed to recommend heparin drip Beta-carlo as patient's BP will tolerate Start aspirin and Lipitor Check lipid profile Obtain echocardiogram Cardiology to follow. Anxiety and depression Reported psychotic features. Validates, reconcile and continue home medications. DVT prophylaxis: Heparin drip Advanced directive: Full code. - Advance Directives Does patient have a Living Will: No Does patient have a Durable POA for Healthcare: No
[2024-07-28] MEDS ORDERED: LORazepam 2 MG/ML VIAL ONE (21:22)
[2024-07-28 22:19] LABS: Troponin High Sensitivity 362.7 pg/mL (<58.9)
[2024-07-28] MEDS: ATORVASTATIN 40 MG TAB PO SCH (22:31)
[2024-07-28 22:51] LABS: Thyroid Stimulating Hormone 1.3 uIU/mL (0.358-3.740)
[2024-07-28] MEDS: HYDRALAZINE HCL 20 MG/ML VIAL IV PRN (23:31)
[2024-07-28] MEDS: NA CHLORIDE 0.9% 1,000 ML IV SCH (23:41)
[2024-07-29 03:52] LABS: Barbiturates NEGATIVE (NEGATIVE); Benzodiazepines NEGATIVE (NEGATIVE); Cocaine NEGATIVE (NEGATIVE); METHAMPHETAM NEGATIVE (NEGATIVE); Methadone NEGATIVE (NEGATIVE); Opiates NEGATIVE (NEGATIVE); Phencyclidine NEGATIVE (NEGATIVE); Specific Gravity 1.005 (1.005-1.030); Sqamous Epithelial None Seen /HPF (None Seen); THC Cannibis NEGATIVE (NEGATIVE); Urine Bacteria None Seen /HPF (<20); Urine Bilirubin NEGATIVE (Negative); Urine Blood Negative (Negative); Urine Clarity Clear (Clear); Urine Color Colorless (Yellow); Urine Culture Reflex Order NOT NEEDED; Urine Glucose NEGATIVE (Negative); Urine Ketones NEGATIVE (Negative); Urine Micro Reflex YN NO BILL MICROSCOPIC; Urine Nitrite NEGATIVE (Negative); Urine Protein NEGATIVE (Negative); Urine RBC None Seen /HPF (None Seen); Urine Urobilinogen Normal (Normal); Urine WBC <5 /HPF (<5)
[2024-07-29 06:34] LABS: Absolute Basophils 0.1 K/uL (0-0.5); Absolute Eosinophils 0.1 K/uL (0-0.5); Absolute Lymphocytes (CBC) 2.5 K/uL (0.7-4.9); Absolute Monocytes 0.7 K/uL (0.1-1.3); Absolute Neutrophil 6.4 K/uL (1.8-8.0); Basophils % 1.3 % (0-1.3); Eosinophils % 0.8 % (0-4.4); Hematocrit 44.7 % (39.6-49.0); Lymphocytes % 25.5 % (15.3-44.8); MCH 29.5 pg (27.0-35.0); MCHC 35.9 g/dL (32.0-36.0); MCV 82.2 fL (80-100); MPV 10.1 fL (7.6-11.3); Neutrophils % 65.4 % (41.7-73.7); Nucleated Red Blood Cells % 0.1 % (0-0); Platelets 251 thou/uL (152-406); RBC Red Blood Cell Count 5.44 M/uL (4.33-5.43); Red Cell Distribution Width 13.5 % (12.1-15.2)
[2024-07-29 06:41] LABS: Albumin 3.4 g/dL (3.4-5.0); Albumin/Globulin Ratio 0.9 (1.1-1.8); Anion Gap 7.7 mEq/L (5.0-15.0); Bilirubin Total 0.8 mg/dL (0.2-1.0); Globulin 3.7 g/dL (2.3-3.5); Magnesium 2.3 mg/dL (1.6-2.4); Phosphorus 3.6 mg/dL (2.5-4.9); Potassium 3.7 mEq/L (3.5-5.1); Protein, Total 7.1 g/dL (6.4-8.2)
[2024-07-29] MEDS: KCL 20 MEQ/100 mL IVPB 20 MEQ/100 ML BAG IV SCH (07:00)
[2024-07-29] MEDS: POTASSIUM CL SA 10 MEQ TAB PO ONE (08:37)
[2024-07-29 08:38] LABS: White Blood Cell Scan OK (OK)
[2024-07-29] MEDS: ASPIRIN EC 81 MG TAB PO SCH (08:38)
[2024-07-29] MEDS: METOPROLOL TAR 25 MG TAB PO SCH (08:38)
[2024-07-29 08:39] LABS: Blood Morphology Comment NOT SEEN (NOT SEEN); Platelet Estimate ADEQ
--- NOTE | 2024-07-29 09:22 | P.CNS ---
Date of Consult: 07/29/24 Chief Complaint: Elevated blood pressure History of Present Illness: Patient with PMH of HTN, presented from psych office for elevated BP, denies any cardiac symptoms, he has not been complaint with his HTN medications due to cost issues. Allergies No Known Allergies Allergy (Unverified 07/28/24 23:13) Home medications list reviewed: Yes Home Medications: ALPRAZolam [Xanax] 1 mg PO BID PRN 07/28/24 Dextroamphetamine/Amphetamine [Adderall 30 mg Tablet] 30 mg PO DAILY 07/28/24 Hydrocodone 10/APAP 325 [[place] 10/325*] 1 tab PO BID PRN 07/28/24 Losartan/Hydrochlorothiazide [Losartan-Hctz 100-25 mg Tab] 1 tab PO DAILY 07/28/24 Zolpidem Tartrate [Ambien] 10 mg PO BEDTIME PRN PRN 07/28/24 - Past Medical/Surgical History Diabetic: No -: Hypertension -: Anxiety -: Depression -: ADHD -: Unknown - Family History Mother Medical History: Stroke, Cancer Father Medical History: Hypertension - Social History Alcohol use: Yes CD- Drugs: Yes Caffeine use: Yes Place of Residence: Home Review of Systems 10-point ROS is otherwise unremarkable Physical Examination Temp Pulse Resp BP Pulse Ox 97.3 F 64 13 168/104 H 97 07/29/24 08:00 07/29/24 08:00 07/29/24 08:00 07/29/24 08:00 07/29/24 08:00 General: Alert, In no apparent distress HEENT: Atraumatic, PERRLA, Mucous membr. moist/pink, EOMI, Sclerae nonicteric Neck: Supple, 2+ carotid pulse no bruit, No LAD, Without JVD or thyroid abnormality Respiratory: Clear to auscultation bilaterally, Normal air movement Cardiovascular: Regular rate/rhythm, Normal S1 S2 Gastrointestinal: Normal bowel sounds, No tenderness Musculoskeletal: No tenderness Integumentary: No rashes Neurological: Normal gait, Normal speech, Normal tone, Normal affect Lymphatics: No axilla or inguinal lymphadenopathy Laboratory Data (last 24 hrs) 07/28/24 07/28/24 07/28/24 15:37 15:37 15:37 WBC 7.80 Hgb 16.8 Hct 47.6 Plt Count 261 PT 12.2 INR 1.16 Sodium 134 L Potassium 3.8 BUN 14 Creatinine 1.03 Glucose 91 Magnesium 2.2 Total Bilirubin 1.2 H AST 33 ALT 41 Alkaline Phosphatase 85 - Problems (1) NSTEMI (non-ST elevated myocardial infarction) Current Visit: Yes Status: Acute Plan: Troponin elevated, most likely type 2 SC from HTN emergency, EKG shows ST depression inferolateral leads so will get coronary angiogram to rule out coronary artery disease. (2) HTN (hypertension) Current Visit: Yes Status: Acute Plan: Patient got no medical coverage, start on cheap HTN medications start Norvasc 10 mg daily start HCTZ 25 mg daily continue metoprolol 25 mg po BID get Echo
[2024-07-29] MEDS ORDERED: HEPA 1000U/500MLS 2,000 UNIT/1,000 ML BAG IV ONE (09:49)
[2024-07-29] MEDS ORDERED: HEPARIN 10,000 UNIT/10 ML VIAL IV ONE (09:50)
[2024-07-29] MEDS ORDERED: LIDOCAINE 1% 20 ML MDV ONE (09:50)
[2024-07-29] MEDS ORDERED: HEPARIN 5000 UNIT/ML 1 ML VIAL ONE (09:50)
[2024-07-29] MEDS ORDERED: TICAGRELOR 90 MG TABLET PO ONE (09:50)
[2024-07-29] MEDS ORDERED: ASPIRIN 325 MG TAB ONE (09:50)
[2024-07-29] MEDS ORDERED: CLOPIDOGREL 75 MG TABLET ONE (09:50)
[2024-07-29] MEDS ORDERED: ATROPINE SULF 1 MG/10 ML SYR IV ONE (09:50)
[2024-07-29] MEDS ORDERED: MIDAZOLAM HCL 2 MG/2 ML INJ ONE (09:51)
[2024-07-29] MEDS ORDERED: FENTANYL CITR 100 MCG/2 ML ONE (09:51)
[2024-07-29] MEDS: AMLODIPINE 10 MG TAB PO ONE (11:48)
[2024-07-29] MEDS: hydroCHLOROthiazide 25 MG TAB PO ONE (11:48)
--- NOTE | 2024-07-29 11:49 | EKG ---
Test Date: 2024-07-28 Test Time: 15:54:34 Scrub Technician: ES MEASUREMENT RESULTS: Intervals: Rate: 66 MN: 140 QRSD: 90 QT: 436 QTc: 457 [place]: P: 34 MN: 140 QRS: 6 T: 215 INTERPRETIVE STATEMENTS: Normal sinus rhythm Marked ST abnormality, possible inferolateral subendocardial injury Abnormal ECG No previous ECG available for comparison Electronically Signed On 07-29-24 11:48:41 JOB DEVELOPMENT SPECIALIST by Jacky Cordoba
--- NOTE | 2024-07-29 14:28 | P.PN ---
Subjective Date of Service: 07/29/24 Chief Complaint: Elevated blood pressure Patient is awake and alert. Aware of his surroundings Oriented x 4 He denies any chest pain or shortness of breath. Physical Examination - Vital Signs Temperature: 97.6 F Blood Pressure: 154/92 Pulse: 62 Respirations: 17 Pulse Ox (%): 99 - Studies Laboratory Data (last 24 hrs) 07/28/24 07/28/24 07/28/24 15:37 15:37 15:37 WBC 7.80 Hgb 16.8 Hct 47.6 Plt Count 261 PT 12.2 INR 1.16 Sodium 134 L Potassium 3.8 BUN 14 Creatinine 1.03 Glucose 91 Magnesium 2.2 Total Bilirubin 1.2 H AST 33 ALT 41 Alkaline Phosphatase 85 Assessment And Plan - Plan Physical examination General: Alert and oriented x3, NAD, HEENT: Conjunctiva not pale, anicteric sclera Neck: Supple, no elevated JVD Heart: Heart sounds 1 and 2 normal, regular rhythm, normal rate, no pedal edema Lungs: Clear to auscultation bilaterally, adequate breath sounds bilaterally, no rhonchi or crackles. Abdomen: Soft, nondistended, nontender, normal bowel sounds. Extremities: No tenderness, no deformity Skin: Normal skin turgor, no rash, no nodules or ulcers. Neuro: No focal motor deficit. Normal speech. Psychiatry: Normal mood, no agitation. Diagnosis Malignant hypertension Transient amnesia NSTEMI Abnormal EKG. Anxiety and depression Plan: Malignant hypertension Blood pressure improved Patient is awake and alert. Continue oral metoprolol Amlodipine added. Titrate antihypertensives. Resume IV as needed for BP spikes. NSTEMI Abnormal EKG Troponin trended up. Patient treated with heparin drip He was seen and evaluated by cardiology Dr. Cordoba. Patient plan for cardiac catheterization today. Continue metoprolol Continue aspirin and Lipitor Echocardiogram is pending Cardiology to follow. Anxiety and depression Reported psychotic features. Continues Xanax, hold Adderral due to ischemic heart disease evaluation. DVT prophylaxis: Heparin drip Advanced directive: Full code.
[2024-07-29] MEDS ORDERED: ALPRAZOLAM 1 MG TABLET PO PRN (14:45)
--- NOTE | 2024-07-29 14:47 | OP ---
Date of Procedure: 07/29/2024 Surgeon: Jacky Cordoba Procedures Performed: 1.Left heart catheterization. 2.Selective coronary angiogram. Indication For Procedure: [id number], hypertensive emergency. Complications: None. Estimated Blood Loss: Less than 50 cc. Access: Right radial, closed by TR band. Sedation Time: 20 minutes with 1 of Versed and 50 of fentanyl. Description Of Procedure: After risks, and benefits, and alternatives were explained to the patient, patient agreed to proceed with procedure and signed informed consent. The patient was brought back to the labview programmer, prepped and draped in sterile fashion. Time-out was performed. Sedation was admini stered. Next, the right radial access was obtained using ultrasound-guided micropuncture technique. Hailey 4.0 catheter was advanced over a J-wire to the LV cavity. LVEDP was obtained. Pullback did n ot show any gradient. Same catheter was used for selective angiogram of the left and right coronary artery systems. At the end of procedure, catheter was removed over a J-wire. Sheath was removed. T R band was applied. Hemostasis was achieved, and patient was moved back to Recovery in stable condit ion. Findings: 1.Left main normal. 2.LAD; diffuse mild luminal irregularities. 3.Left circ; diffuse mild luminal irregularities. 4.RCA; diffuse mild luminal irregularities. 5.LVEDP 20 mmHg. Assessment And Plan: Diffuse mild luminal irregularities with no significant coronary artery disease . Mild elevated filling pressure. Plan will be to continue aggressive medical treatment and control blood pressure aggressively. PAYTON/TONY Voice ID: [id number] Report ID: [id number]
[2024-07-29] MEDS: HYDROCODONE/APAP 10/325 TAB PO PRN (17:04)
[2024-07-29] MEDS: ZOLPIDEM TARTRATE 10 MG TABLET PO PRN (21:02)
[2024-07-30 02:31] VITALS: BMI 30.9
[2024-07-30 06:01] LABS: MPV 10.8 fL (7.6-11.3); Platelets 260 thou/uL (152-406)
[2024-07-30 06:20] LABS: Magnesium 2.2 mg/dL (1.6-2.4); Phosphorus 3.8 mg/dL (2.5-4.9)
[2024-07-30] MEDS: AMLODIPINE 10 MG TAB PO SCH (07:44)
[2024-07-30] MEDS: hydroCHLOROthiazide 25 MG TAB PO SCH (07:44)
[2024-07-30] MEDS: LOSARTAN/HCTZ 50-12.5 PO SCH (07:45)
[2024-07-30] MEDS ORDERED: HOME MED 1 EA UNK (Losartan/Hydrochlorothiazide [Losartan-Hctz 100-25 Mg Tab] 1 EACH Table PO SCH (09:00)
[2024-07-30 09:03] VITALS: BP 164/128; TEMP 97.2
[2024-07-30 09:45] VITALS: O2SAT 92
[2024-07-30] MEDS ORDERED: AMLODIPINE 10 MG TAB PO ONE (11:00)
--- NOTE | 2024-07-30 13:47 | P.DS ---
Admission Date: 07/28/24 Discharge Date: 07/30/24 Disposition: ROUTINE DISCHARGE Discharge Condition: CRITICAL Reason for Admission: Elevated blood pressure - Problems (1) HTN (hypertension) Status: Acute (2) NSTEMI (non-ST elevated myocardial infarction) Status: Acute Hospital Course: 1. 49-year-old male with history of uncontrolled admitted for hypertensive hypertensive emergency with SBP up to the 220s. Stopped taking his BP meds over a year ago for inexplicable reasons. On admission, resumed on BP meds including amlodipine, HCTZ, losartan and metoprolol with improvement in SBP to the 160s at time of discharge. Labs also showed elevated troponin so underwent a coronary angiogram which did not show any significant CAD. Eventually discharged home with prescriptions written for amlodipine, HCTZ, losartan and metoprolol Vital Signs/Physical Exam: Temp Pulse Resp BP Pulse Ox 97.2 F 59 19 164/128 H 100 07/30/24 08:00 07/30/24 09:00 07/30/24 09:00 07/30/24 09:00 07/30/24 09:00 General: Oriented x3 HEENT: Atraumatic Neck: Supple Respiratory: Clear to auscultation bilaterally Cardiovascular: No edema, Regular rate/rhythm Gastrointestinal: Normal bowel sounds Musculoskeletal: No clubbing, No swelling Laboratory Data at Discharge: WBC Cancelled 07/30/24 18:30 Hgb Cancelled 07/30/24 18:30 Hct Cancelled 07/30/24 18:30 Plt Count Cancelled 07/30/24 18:30 PT 12.2 SECONDS (9.4-12.5) 07/28/24 15:37 INR 1.16 07/28/24 15:37 APTT Cancelled 07/29/24 10:00 Sodium 138 mEq/L (136-145) 07/30/24 05:10 Potassium 4.0 mEq/L (3.5-5.1) 07/30/24 05:10 BUN 12 mg/dL (7-18) 07/30/24 05:10 Creatinine 1.08 mg/dL (0.70-1.30) 07/30/24 05:10 Glucose 105 mg/dL (74-106) 07/30/24 05:10 Phosphorus 3.8 mg/dL (2.5-4.9) 07/30/24 05:10 Magnesium 2.2 mg/dL (1.6-2.4) 07/30/24 05:10 Total Bilirubin 0.8 mg/dL (0.2-1.0) 07/29/24 06:10 AST 23 U/L (15-37) 07/29/24 06:10 ALT 38 U/L (16-61) 07/29/24 06:10 Alkaline Phosphatase 75 U/L (45-117) 07/29/24 06:10 Triglycerides 72 mg/dL (<150) 07/29/24 06:10 Cholesterol 144 mg/dL (<200) 07/29/24 06:10 HDL Cholesterol 43 mg/dL (40-60) 07/29/24 06:10 Cholesterol/HDL Ratio 3.35 07/29/24 06:10 Home Medications: ALPRAZolam [Xanax*] 1 mg PO BID PRN 07/28/24 Dextroamphetamine/Amphetamine [Adderall 30 mg Tablet] 30 mg PO DAILY 07/28/24 Zolpidem Tartrate [Ambien*] 10 mg PO BEDTIME PRN PRN 07/28/24 ALPRAZolam [Xanax*] 1 mg PO BID PRN tab 07/30/24 Amlodipine [Norvasc*] 10 mg PO DAILY tab 07/30/24 Amlodipine [Norvasc*] 10 mg PO DAILY 60 Days #60 tab 07/30/24 Atorvastatin Calcium [Lipitor] 40 mg PO BEDTIME tab 07/30/24 Losartan Potassium [Cozaar] 100 mg PO DAILY 60 Days #60 07/30/24 Metoprolol Tartrate [Lopressor*] 25 mg PO BID 6AM 6PM 30 Days #60 tab 07/30/24 Zolpidem Tartrate [Ambien*] 10 mg PO BEDTIME PRN PRN 07/30/24 hydroCHLOROthiazide [Hydrodiuril*] 25 mg PO DAILY 60 Days #60 tab 07/30/24 New Medications: Losartan Potassium [Cozaar] 100 mg PO DAILY 60 Days #60 hydroCHLOROthiazide [Hydrodiuril*] 25 mg PO DAILY 60 Days #60 tab Metoprolol Tartrate [Lopressor*] 25 mg PO BID 6AM 6PM 30 Days #60 tab Amlodipine [Norvasc*] 10 mg PO DAILY 60 Days #60 tab Physician Discharge Instructions: PROBLEM: Hypertension GOAL: Clear understanding of disease process INSTRUCTIONS: continue medications as ordered Diet: Regular Activity: DME DME: Date Ordered: Name of Company: [employer] Services Needed: None Name of Company: Date or Referral: IMMUNIZATION Influenza Vaccine Indicated: No Influenza Vaccine Given: Date Given: Pneumonia Vaccine Indicated: No Pneumonia Vaccine Given: Date Given: Follow up with PCP within 1 week post discharge . Take meds as prescribed Diet: Regular Followup: NONE,NONE [Primary Care Provider] - 1 Week
== END 2024-07-30 10:55 | disposition home or self-care (01) | DRG 282 ==
LOC: ER 15:06 → ERHOLD 17:56 → 3RD-ICU 22:04
PROVIDERS: ADMIT Internal Medicine; ATTEND Internal Medicine
PROC: 4A023N7 Measurement of Cardiac Sampling and Pressure, Left Heart, Percutaneous Approach (ICD-10-PCS; principal; 2024-07-29)
PROC: B2111ZZ Fluoroscopy of Multiple Coronary Arteries using Low Osmolar Contrast (ICD-10-PCS; 2024-07-29)
DX: I16.1 Hypertensive emergency (principal); I21.A1 Myocardial infarction type 2; F14.10 Cocaine abuse, uncomplicated; F41.9 Anxiety disorder, unspecified; F32.A Depression, unspecified; G45.4 Transient global amnesia; I10 Essential (primary) hypertension; F98.8 Other specified behavioral and emotional disorders with onset usually occurring in childhood and adolescence; F17.210 Nicotine dependence, cigarettes, uncomplicated; Z91.141 Patient's other noncompliance with medication regimen due to financial hardship; Z79.899 Other long term (current) drug therapy
CPT/HCPCS: 36415; 70450; 71045; 76937; 80048; 80053; 80061; 80076; 80307; 81001; 83735; 83880; 84100; 84443; 84484; 85025; 85049; 85610; 85730; 93005; 93458; 99152; 99153; 99285; C1893; J0360; J0461; J1644; J2003; J2250; J3010; J7030; Q9966